=== PATIENT | male | born 1995 | race Caucasian/White ===

== ENCOUNTER 2020-10-11 08:29 | Emergency (ER) | payer OTHER ==
[~2020-10-11] VITALS: Ht 175.3 cm; Wt 72.7 kg
[2020-10-11] MEDS ORDERED: TETanus/Pertussis (Acell)/Diphther VAC/PF (Tdap-Adult) 0.5ml syringe IMVAC ONE (08:55)
[2020-10-11 09:09] VITALS: BP 134/90
[2020-10-11] MEDS ORDERED: CEPH250T PO (09:19)
== END 2020-10-11 09:38 | disposition home or self-care (01) ==
LOC: ER 08:30
DX: S81.812A Laceration without foreign body, left lower leg, initial encounter (principal); Z79.2 Long term (current) use of antibiotics; Z20.3 Contact with and (suspected) exposure to rabies; X58.XXXA Exposure to other specified factors, initial encounter; Y93.89 Activity, other specified; Y92.89 Other specified places as the place of occurrence of the external cause; Y99.8 Other external cause status
CPT/HCPCS: 90471; 90715; 99283

== ENCOUNTER 2023-01-31 16:27 | Emergency (ER) | payer SELFPAY ==
[~2023-01-31] VITALS: Ht 175.3 cm; Wt 80.4 kg
[2023-01-31] MEDS ORDERED: ketorolac tromethamine 15mg/ml inj. IV ONE (17:15)
[2023-01-31] MEDS ORDERED: ketorolac trometh. 30mg/ml inj. IV ONE (17:15)
[2023-01-31 18:26] VITALS: BP 134/86; PULSE 84; RESP 17; TEMP 98.3; O2SAT 99
--- NOTE | 2023-01-31 18:26 | NUR ---
I AGREE WITH THE ASSESSMENT DONE BY [place] STAHL LVN.
== END 2023-01-31 18:28 | disposition home or self-care (01) ==
LOC: ER 16:28
DX: S29.011A Strain of muscle and tendon of front wall of thorax, initial encounter (principal); X50.3XXA Overexertion from repetitive movements, initial encounter; Y93.89 Activity, other specified; Y92.89 Other specified places as the place of occurrence of the external cause; Y99.8 Other external cause status
CPT/HCPCS: 71045; 96374; 99284; J1885